=== PATIENT | female | born 1970 | race Caucasian/White ===

== ENCOUNTER 2017-01-01 08:17 | Emergency (ER) | payer BC ==
[~2017-01-01] VITALS: Ht 160 cm; Wt 100.0 kg
[~2017-01-01 08:17] MED LIST: HYDR-762 PO; POLY17PO6 PO; SITA1TAB3 PO
[2017-01-01 08:26] VITALS: Ht 160 cm; Wt 100.0 kg
[2017-01-01] MEDS ORDERED: ONDANSETRON 4 MG INJ IV STA (08:38)
[2017-01-01] MEDS ORDERED: morphine 2 MG INJ IV STA (08:38)
[2017-01-01] MEDS ORDERED: SOD CHLORIDE 0.9% 1,000 ML IV STA (08:38)
[2017-01-01 09:11] LABS: ADD SCAN DIFF NO
[2017-01-01 09:15] LABS: BASOPHILS % 0.3 % (0.0-2.0); EOSINOPHILS # 0.2 10^3/ul (0.0-0.5); EOSINOPHILS % 2.4 % (0.0-7.0); HEMATOCRIT 42.3 % (37.0-47.0); HEMOGLOBIN 13.4 g/dl (12.0-16.0); LYMPHOCYTES # 2.3 10^3/ul (0.8-2.9); LYMPHOCYTES % 25.9 % (15.0-51.0); MEAN CORPUSCULAR HEMOGLOBIN 27.5 pg (29.0-33.0); MEAN CORPUSCULAR HGB CONC 31.7 g/dl (32.0-37.0); MEAN CORPUSCULAR VOLUME 86.9 fl (82.0-101.0); MEAN PLATELET VOLUME 8.8 fl (7.4-10.4); MONOCYTE # 0.5 10^3/ul (0.3-0.9); NEUTROPHIL # 5.9 10^3/ul (1.6-7.5); NEUTROPHILS % 65.4 % (39.0-77.0); PLATELET COUNT 312 10^3/UL (140-415); RED BLOOD COUNT 4.87 10^6/ul (4.20-5.40); RED CELL DISTRIBUTION WIDTH 13.1 % (11.5-14.5); WHITE BLOOD COUNT 9.1 10^3/ul (4.8-10.8)
[2017-01-01 09:20] LABS: ADD UMIC YES; URINE BILIRUBIN (Dip) NEGATIVE (NEGATIVE); URINE BLOOD (Dip) 1+ (NEGATIVE); URINE COLOR YELLOW (YELLOW); URINE GLUCOSE (Dip) NEGATIVE (NEGATIVE); URINE KETONES (Dip) NEGATIVE (NEGATIVE); URINE LEUKOCYTE ESTERASE (Dip) NEGATIVE (NEGATIVE); URINE NITRITE (Dip) NEGATIVE (NEGATIVE); URINE TOTAL PROTEIN (Dip) NEGATIVE (NEGATIVE); URINE UROBILINOGEN (Dip) 0.2 E.U./dL (0.1-1.0)
[2017-01-01 09:33] LABS: ALBUMIN 4.5 g/dl (3.3-4.9)
[2017-01-01 09:34] LABS: POTASSIUM 4.5 mmol/L (3.5-5.1)
[2017-01-01 09:34] LABS: SQUAMOUS EPITHELIAL CELL,UR FEW
[2017-01-01 09:35] LABS: CREATININE 0.62 mg/dl (0.44-1.00)
[2017-01-01 09:36] LABS: ALBUMIN/GLOBULIN RATIO 1.09; BILIRUBIN,INDIRECT 0.2 mg/dl (0-1.1); BILIRUBIN,TOTAL 0.2 mg/dl (0.2-1.3); CALCIUM 9.4 mg/dl (8.4-10.2); TOTAL PROTEIN 8.6 g/dl (6.1-8.1)
--- NOTE | 2017-01-01 09:40 | RADRPT ---
PROCEDURE: CT Abdomen and Pelvis without contrast. CLINICAL INDICATION: Abdominal pain. TECHNIQUE: Routine tomographic images of the abdomen and pelvis were obtained from the domes of th e diaphragm to the symphysis pubis. The patient was scanned withoutoral or intravenous contrast. C oronal and sagittal reformatted images were obtained from the axial source images. Images were revie wed on a high-resolution PACS workstation. The total exam CTDI equals 23.29 mGy and the total exam D LP equals 1372.46 mGy-cm. One or more of the following dose reduction techniques were used: Automa vladimir exposure control, adjustment of the mA and / or kV according to patient size, or use of iterativ e reconstruction technique. COMPARISON: CT abdomen and pelvis dated 09/29/2015 FINDINGS: The visualized portions of the lung bases are clear. Evaluation of the intra-abdominal solid org ans is limited on this noncontrast examination. The liver appears normal in size. There is no intr a or extrahepatic biliary dilatation. The gallbladder contains stones. The spleen, pancreas, and a drenal glands are unremarkable. The kidneys are symmetric in size. No renal, ureteral, or bladder calculi are identified. No perine phric inflammatory changes are identified. The urinary bladder is grossly unremarkable. The bowel demonstrates normal course and caliber. There is no evidence of bowel obstruction. The appendix is normal in appearance. Diverticula are noted throughout the colon. No intraperitoneal fr ee fluid, free air or abscess is identified. The uterus is surgically absent. There is a surgical c lip in the right adnexa. The aorta is normal in caliber. No retroperitoneal, mesenteric, or inguin al lymphadenopathy is identified. There is a small fat-containing umbilical hernia. The osseous structures demonstrate chronic changes of the inferior and superior endplates of multipl e lumbar and lower thoracic vertebral bodies. There is early syndesmophyte formation involving the visualized lower thoracic vertebral bodies. There is sclerosis along the iliac and sacral margin of the sacroiliac joints bilaterally with narrowing of the sacroiliac joints and early ankylosis of the inferior right sacroiliac joint. Sclerotic and cystic changes of the pubic symphysis are also note d. No significant subcutaneous soft tissue abnormalities are seen. IMPRESSION: 1. Limited, noncontrast CT the abdomen and pelvis. No acute intra-abdominal abnormality is appreci ated. 2. Sclerotic changes of the endplates of the visualized lower thoracic and lumbar vertebral bodies with early syndesmophyte formation. Findings are suggestive of ankylosing spondylitis. 3. Sclerosis along the sacral and iliac margins of the sacroiliac joints with narrowing of the join t spaces and early ankylosis of the right inferior sacroiliac joint, suggestive of sacroiliitis. 4. 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 5. Cholelithiasis. 6. Diverticulosis. 7. Small fat-containing umbilical hernia. 8. Status post hysterectomy. RPTAT: HH .Davina Mcneal MD, MD Date Time Electronically viewed and signed by .Davina Mcneal MD, on 01/01/2017 09:39 .[place]/
[2017-01-01] MEDS ORDERED: HYDR-902 PO (10:14)
[2017-01-01] MEDS ORDERED: IBUP800T25 PO (10:14)
--- NOTE | 2017-01-01 10:17 | ERD ---
ER Documentation Chief Complaint Date/Time DATE: 01/01/17 TIME: 10:15 Chief Complaint right lower abdominal pain x 3 days HPI This is a 46-year-old female who is complaining of right lower abdominal pain that she has had for 3 days however she has had this pain on and off for over a year. She denies fever. Denies any nausea vomiting or diarrhea. Pain is constant and throbbing nonradiating. Denies any dysuria, hematuria or urinary frequency. She is currently taking Macrobid for UTI. ROS All systems reviewed and are negative except as per history of present illness. Medications Home Meds Active Scripts Hydrocodone/Acetaminophen (Tunas 10-325 Tablet) 1 Each Tablet, 1 TAB PO Q6H Y for PAIN, #20 TAB Prov:JESSICA KIDD PA-C 01/01/17 Ibuprofen* (Motrin*) 800 Mg Tab, 800 MG PO Q6, #30 TAB Prov:JESSICA KIDD PA-C 01/01/17 Hydrocodone Bit-Acetaminophen* (Tunas*) 10-325 Mg Tablet, 1 TAB PO Q6 Y for PAIN , #10 TAB Prov:GERALDINE PEREZ MD 09/30/15 Polyethylene Glycol* (Miralax*) 17 Gm Powd.pack, 17 GM PO DAILY, #7 Prov:GERALDINE PEREZ MD 09/30/15 Hydrocodone Bit-Acetaminophen* (Tunas*) 10-325 Mg Tablet, 1 TAB PO Q6 Y for PAIN , #10 TAB Prov:GERALDINE PEREZ MD 09/30/15 Reported Medications Sitagliptin Phos-Metformin Hcl (Janumet) 50-500 Mg Tablet, 1 TAB PO WITH BREAKFAST DINNE, #60 TAB 09/13/15 Allergies Allergies: Coded Allergies: No Known Drug Allergy (Verified Allergy, Unknown, 04/20/13) PMhx/Soc Medical and Surgical Hx: pt denies Medical Hx, pt denies Surgical Hx History of Surgery: Yes (B LEG VARICOSE VEINS, LEG ARTERY REMOVAL. HYSTERECTOMY , OVARY REMOVAL, UMBI) Anesthesia Reaction: No Hx Neurological Disorder: No Hx Respiratory Disorders: No Hx Cardiac Disorders: No Hx Psychiatric Problems: No Hx Miscellaneous Medical Probl: No (hyper coagulability) Hx Alcohol Use: No Hx Substance Use: No Hx Tobacco Use: No Smoking Status: Never smoker FmHx Family History: diabetes Physical Exam Vitals Vital Signs Date Time Temp Pulse Resp B/P Pulse Ox O2 Delivery O2 Flow Rate FiO2 01/01/17 08:26 97.5 91 20 124/72 96 Physical Exam General: well developed, well nourished, alert, nontoxic, no distress Head: normocephalic, atraumatic Neck: Supple, nontender, no lymphadenopathy, no midline tenderness Respiratory: Clear to auscaultation bilaterally, speaks in full sentences, no use of accesory muscles or labored breathing, no rales, ronchi, or wheezing Cardiovascular: RRR, No murmurs GI: soft, mild right lower quadrant tenderness, non distended, negative murphys sign, negative mcburneys point tenderness, no cva tenderness bilaterally, no rebound or guarding Back: no midline tenderness, no step offs or bony abnormalities, sensation to light touch in tact Result Diagram: 01/01/17 0800 01/01/17 0800 Results 24 hrs Laboratory Tests Test 01/01/17 08:00 01/01/17 08:50 White Blood Count 9.110^3/ul Red Blood Count 4.8710^6/ul Hemoglobin 13.4g/dl Hematocrit 42.3% Mean Corpuscular Volume 86.9fl Mean Corpuscular Hemoglobin 27.5pg Mean Corpuscular Hemoglobin Concent 31.7g/dl Red Cell Distribution Width 13.1% Platelet Count 42565^3/UL Mean Platelet Volume 8.8fl Neutrophils % 65.4% Lymphocytes % 25.9% Monocytes % 5.0% Eosinophils % 2.4% Basophils % 0.3% Nucleated Red Blood Cells % 0.0/100WBC Neutrophils # 5.910^3/ul Lymphocytes # 2.310^3/ul Monocytes # 0.510^3/ul Eosinophils # 0.210^3/ul Basophils # 0.010^3/ul Nucleated Red Blood Cells # 0.010^3/ul Sodium Level 140mmol/L Potassium Level 4.5mmol/L Chloride Level 98mmol/L Carbon Dioxide Level 27mmol/L Anion Gap 20 Blood Urea Nitrogen 15mg/dl Creatinine 0.62mg/dl Glucose Level 160mg/dl Calcium Level 9.4mg/dl Total Bilirubin 0.2mg/dl Direct Bilirubin 0.00mg/dl Indirect Bilirubin 0.2mg/dl Aspartate Amino Transf (AST/SGOT) 55IU/L Alanine Aminotransferase (ALT/SGPT) 80IU/L Alkaline Phosphatase 119IU/L Total Protein 8.6g/dl Albumin 4.5g/dl Globulin 4.10g/dl Albumin/Globulin Ratio 1.09 Lipase 214U/L Urine Color YELLOW Urine Clarity CLEAR Urine pH 5.5 [address] [facility] 1.010 Urine Ketones NEGATIVE Urine Nitrite NEGATIVE Urine Bilirubin NEGATIVE Urine Urobilinogen 0.2 E.U./dL Urine Leukocyte Esterase NEGATIVE Urine Microscopic RBC 2-5/HPF Urine Microscopic WBC NONE SEEN/HPF Urine Squamous Epithelial Cells FEW Urine Hemoglobin 1+ Urine Glucose NEGATIVE% Urine Total Protein NEGATIVE Current Medications Medications (Trade) Dose Ordered Sig/Taj Route PRN Reason Start Time Stop Time Status Last Admin Dose Admin Sodium Chloride (NS) 1,000 ml @ 1,000 mls/hr Q1H STAT IV 01/01/17 08:38 01/01/17 09:37 DC 01/01/17 08:57 Morphine Sulfate (morphine) 2 mg ONCE STAT IV 01/01/17 08:38 01/01/17 08:39 DC 01/01/17 08:57 Ondansetron HCl (Zofran Inj) 4 mg ONCE STAT IV 01/01/17 08:38 01/01/17 08:39 DC 01/01/17 08:57 Procedures/MDM Patient has some right lower quadrant pain and mild tenderness on exam. Her vitals are normal and she is well-appearing in no distress. She has no fever, nausea or vomiting. Her workup was unremarkable. She was given copies of her CT report and labs that she can follow with primary care as well as prescription for ibuprofen and a small amount of Tunas. Recommended this patient follow up with her primary care doctor within 48 hours or return to the emergency room for any worsening of symptoms. However this time I do believe there is suitable for outpatient management. I answered all their questions and they agreed with the plan and were discharged home. Departure Diagnosis: Primary Impression: Abdominal pain Condition: Stable Patient Instructions: Abdominal Pain Additional Instructions: Llame al doctor MAANA y steven albaro MIYA PARA DENTRO DE 1-2 PALACIOS.Dgale a la secretaria que nosotros le instruimos hacer esta miya.Avise o llame si vance condicin se empeora antes de la miya. Regresa aqui si peor o no mejor. JESSICA KIDD PA-C January 01, 2017 10:17
[2017-01-01] MEDS ORDERED: ONDA4TAB14 PO (10:21)
[2017-01-01] MEDS ORDERED: ONDANSETRON (ODT) 4 MG TAB ODT STA (10:21)
[2017-01-01 10:30] VITALS: BP 120/76; PULSE 78; RESP 20; TEMP 98.2
== END 2017-01-01 10:31 | disposition home or self-care (01) ==
LOC: FTE 08:17
DX: R10.31 Right lower quadrant pain (principal)
CPT/HCPCS: 36415; 74176; 80053; 81001; 81003; 83690; 85025; 96361; 96374; 96375; 99285; J2270; J2405; J7030

== ENCOUNTER 2019-03-07 05:28 | Emergency (ER) | payer BC, OTHER ==
[~2019-03-07] VITALS: Ht 160 cm; Wt 97.7 kg
[~2019-03-07 05:28] MED LIST changes: +GLIP2.5T3 PO; -HYDR-762 PO; +NAPR-985 PO; -POLY17PO6 PO; +PRAV10TA43 PO; -SITA1TAB3 PO; +SITA1TAB5 PO
[2019-03-07 05:30] VITALS: Ht 160 cm; Wt 97.7 kg
[2019-03-07] MEDS ORDERED: SOD CHLORIDE 0.9% 500 ML IV STA (06:17)
[2019-03-07] MEDS ORDERED: LORAZEPAM 2 MG INJ IV ONE (06:30)
--- NOTE | 2019-03-07 06:31 | ERD ---
ER Documentation Chief Complaint Chief Complaint SHORTNESS OF BREATH WITH LIMBS SHAKING. HPI 49-year-old female who presents to the emergency room complaining of tearfulness. She states that since Thursday she has noted episodes of limb shaking. She states that her whole body has a shaking sensation that courses through her blood. The patient states that she becomes tearful, anxious and short of breath. These episodes can last up to 4 hours. She states that her resolving factors is usually someone coming in and telling her everything is okay. Patient states significant social stressors at home recently. She denies any exertional symptoms no chest pain no pleuritic pain no headache no slurred speech. She denies any suicidal ideation. ROS All systems reviewed and are negative except as per history of present illness. Medications Home Meds Active Scripts Lorazepam* (Ativan*) 0.5 Mg Tablet, 0.5 MG PO Q8H PRN for ANXIETY, #8 TAB Prov:EVARISTO VANEGAS MD 03/07/19 Reported Medications Naproxen* (Naprosyn*) 500 Mg Tablet, 500 MG PO PRN, TAB 01/19/18 Pravastatin Sodium* (Pravastatin Sodium*) 10 Mg Tablet, 10 MG PO HS, TAB 01/19/18 Glipizide* (Glipizide ER*) 2.5 Mg Tab.er.24, 10 MG PO DAILY, TAB 01/19/18 Sitagliptin Phos/Metformin HCl (Janumet 50-1,000 mg Tablet) 1 Each Tablet, 1 EACH PO, TAB 01/19/18 Allergies Allergies: Coded Allergies: No Known Drug Allergy (Verified Allergy, Unknown, 01/19/18) Uncoded Allergies: TAPE (Allergy, Mild, RASHES, ITCHY, 01/19/18) PMhx/Soc History of Surgery: Yes (Hysterectomy 2012) Anesthesia Reaction: No Hx Neurological Disorder: No Hx Respiratory Disorders: No Hx Cardiac Disorders: No Hx Psychiatric Problems: No Hx Miscellaneous Medical Probl: No Hx Alcohol Use: No Hx Substance Use: No Hx Tobacco Use: No Smoking Status: Unknown if ever smoked FmHx Family History: No diabetes Physical Exam Vitals Vital Signs Date Temp Pulse Resp B/P (MAP) Pulse Ox O2 O2 Flow FiO2 Time Delivery Rate 03/07/19 97.2 101 20 143/79 100 Room Air 06:30 (100) 03/07/19 97.2 133 16 151/94 99 05:30 (113) Physical Exam General: Tearful with labile mood Head: Normocephalic, atraumatic. Eyes: Pupils equally reactive, EOM intact ENT: Moist mucous membranes Neck: Supple, no lymphadenopathy Respiratory: Lungs clear bilaterally, no distress Cardiovascular: RRR, no murmurs, rubs, or gallops Abdominal: Soft, non-tender, non-distended, no peritoneal signs : Deferred MSK: No edema, no unilateral swelling, 5/5 strength Neurologic: Alert and oriented, moving all extremities, normal speech, no focal weakness, no cerebellar signs Skin: No rash Psych: Tearful, denies SI Result Diagram: 03/07/19 0550 03/07/19 0550 Results 24 hrs Laboratory Tests Test 03/07/19 05:50 White Blood Count 8.1 10^3/ul Red Blood Count 4.90 10^6/ul Hemoglobin 13.5 g/dl Hematocrit 40.7 % Mean Corpuscular Volume 83.1 fl Mean Corpuscular Hemoglobin 27.6 pg Mean Corpuscular Hemoglobin Concent 33.2 g/dl Red Cell Distribution Width 12.7 % Platelet Count 323 10^3/UL Mean Platelet Volume 9.0 fl Immature Granulocytes % 0.500 % Neutrophils % 61.3 % Lymphocytes % 30.8 % Monocytes % 6.6 % Eosinophils % 0.4 % Basophils % 0.4 % Nucleated Red Blood Cells % 0.0 /100WBC Immature Granulocytes # 0.040 10^3/ul Neutrophils # 4.9 10^3/ul Lymphocytes # 2.5 10^3/ul Monocytes # 0.5 10^3/ul Eosinophils # 0.0 10^3/ul Basophils # 0.0 10^3/ul Nucleated Red Blood Cells # 0.0 10^3/ul Sodium Level 141 mmol/L Potassium Level 3.4 mmol/L Chloride Level 104 mmol/L Carbon Dioxide Level 24 mmol/L Anion Gap 13 Blood Urea Nitrogen 9 mg/dl Creatinine 0.56 mg/dl Est Glomerular Filtrat Rate mL/min > 60 mL/min Glucose Level 143 mg/dl Calcium Level 10.1 mg/dl Current Medications Medications Dose Sig/Taj Start Time Status Last (Trade) Ordered Route PRN Stop Time Admin Dose Reason Admin Sodium 500 ml @ Q1H STAT 03/07/19 DC 03/07/19 Chloride 500 mls/hr IV 06:17 06:44 03/07/19 07:16 Lorazepam 0.5 mg ONCE ONCE 03/07/19 DC 03/07/19 (Ativan) IV 06:30 06:45 03/07/19 06:31 Procedures/MDM EKG, MONITORS, & DIAGNOSTIC IMAGING: EKG: I reviewed and interpreted a 12-lead EKG. Rhythm: Normal sinus rhythm ST Changes: No contiguous ST segment elevations T waves: No contiguous T wave inversions Impression: No evidence of acute cardiac ischemia LAB INTERPRETATION: I reviewed the laboratory testing and it shows no evidence of acute process MEDICAL DECISION MAKING: The patient's presentation seems very consistent with hyperventilation syndrome, anxiety reaction and stress response. Patient's otherwise healthy other than diabetes. Patient exhibits no signs or symptoms concerning for ACS, no exertional symptoms no chest pain. Patient denies any pleuritic pain to suggest pulmonary embolism. While the patient has slight tachycardia this seems to be anxiety related. I do not believe the d-dimer PE study is necessary. No signs or symptoms concerning for dissection. No history suggestive of seizure. I will check basic blood work to rule out electrolyte abnormalities but low pretest probability for this process. The patient was given reassurance. She is not a danger to herself or others. She was advised to have primary care follow-up in outpatient psychiatry evaluation. ER COURSE: * Patient given IV fluid bolus, anxiolysis. * Patient improving at this time. Laboratory testing and diagnostic imaging is unrevealing. At this point the patient can be safely discharged with close primary care follow-up. Referral resources were provided. This includes psychiatry. CONSULTATION: None DISPOSITION PLAN: The patient does not have an identifiable emergent medical condition that warrants inpatient hospitalization at this time. The patient is deemed safe for discharge with outpatient follow-up. We discussed follow up with the patient's primary care doctor within 24 to 48 hours as needed. We also discussed return to the emergency room for worsening symptoms or worsening condition. Outpatient referral: None required Discharge Medications: Ativan 0.5 mg tablets total of 8 Departure Diagnosis: Primary Impression: Anxiety reaction Additional Impression: Paresthesia Condition: Stable EVARISTO VANEGAS MD Mar 07, 2019 06:30
[2019-03-07] MEDS ORDERED: LORA-441 PO (07:21)
[2019-03-07 07:58] VITALS: BP 137/78; PULSE 100; RESP 21
== END 2019-03-07 08:02 | disposition home or self-care (01) ==
LOC: E/R 05:28
DX: F41.9 Anxiety disorder, unspecified (principal); R20.2 Paresthesia of skin; R06.02 Shortness of breath; E11.9 Type 2 diabetes mellitus without complications; Z79.84 Long term (current) use of oral hypoglycemic drugs
CPT/HCPCS: 80048; 85025; 93005; 96374; 99284; J2060; J7040